=== PATIENT | female | born 1940 | race Caucasian/White ===

== ENCOUNTER 2016-08-06 18:49 | Inpatient (IN) | payer MEDICARE, BC ==
--- NOTE | ~2016-08-06 | HP ---
Unit #: [id number] #: [id number] Patient: PERRY ALLISON [id number] [facility]. [place], [place] [address] [id number] I MR#: [id number] NAME: PERRY ALLISON ROOM: Age: 75 Sex: F Admission Date: 08/06/2016 : 1940 Attending Physician: Niranjan Guerrero Jr., M.D. Primary Care Physician: No Primary Care Physician HISTORY AND PHYSICAL CHIEF COMPLAINT Lower abdominal pain. HISTORY OF PRESENT ILLNESS The patient is a 75-year-old white male who has had some intermittent abdominal pains over the last couple of weeks but developed severe periumbilical pain now that has radiated more in the right lower quadrant of her abdomen. She has had no nausea, no vomiting, no diarrhea and denies any fever or chills. She presented to the emergency room at [facility] and was worked up and a CT scan revealed evidence of probable acute early appendicitis without perforation or abscess formation. White blood cell count is 10,000. She has been in regular good health up until recently and did not have severe pain until yesterday and today. She has had no recent URI, no urinary tract symptoms. 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 Apparently she has had some hypertension previously. PAST SURGICAL HISTORY In the past she has had a hysterectomy. MEDICATIONS List of her medications is on the chart under the nursing sheet. ALLERGIES None known. TRANSFUSIONS None in the past. FAMILY HISTORY Noncontributory. SOCIAL HISTORY The patient is , lives at home with family, has a normal good appetite, no recent weight change. She is a nonsmoker, nondrinker. IMMUNIZATIONS Up to date. REVIEW OF SYSTEMS Unit #: [id number] #: [id number] Patient: PERRY ALLISON Ten-system review has been performed which is nonremarkable except as above in history of present illness. PHYSICAL EXAMINATION VITAL SIGNS: The patient is afebrile. Vital signs are normal. HEENT: Nonremarkable. NECK: Supple, without palpable mass or lymphadenopathy. There is no evidence of thyromegaly present. CHEST: There is equal bilateral expansion with bilateral equal breath sounds. The lungs are clear bilaterally. HEART: Regular rhythm, without murmurs or gallops. There is no evidence of cardiomegaly clinically. ABDOMEN: Soft, moderately tender in the right lower quadrant with some guarding without rebound and active bowel sounds present. No evidence of ascites or hernias. EXTREMITIES: Full range of motion without limitation. There is no evidence of peripheral edema. BACK EXAM: There is no CVA tenderness. NEUROLOGICAL: Grossly intact. IMPRESSION The patient on the basis of her CT scan and physical exam probably has early appendicitis but I am going to go ahead with laparoscopic appendectomy, possible open. She understands the procedure including the risks including that of bleeding, staple line leak, intraabdominal organ injury and abscess formation and consents. Dictated by Niranjan Guerrero Jr. MVicky. ESPERANZA/keshawn TD: 08/06/2016 21:19 JOB #: [id number] HISTORY AND PHYSICAL Page 1 of 1 X Niranjan Guerrero MD X HISTORY AND PHYSICAL
--- NOTE | ~2016-08-06 | OR ---
Unit #: [id number] #: [id number] Patient: PERRY ALLISON [id number] [place], [place] [address] [id number] I MR#: [id number] NAME: PERRY ALLISON ROOM: 469 Date of Procedure: 08/06/2016 Admission Date: 08/06/2016 Surgeon: Niranjan Guerrero Jr., M.D. : 1940 Attending Physician: Niranjan Guerrero Jr., M.D. Primary Care Physician: Primary Care Physician No OPERATIVE REPORT INDICATIONS FOR PROCEDURE The patient is a 75-year-old white female, who presented to the emergency room at [facility] after developing severe abdominal pain. She has apparently been having pain for the last three weeks, but it became much more severe today and she presented there and was worked up. CT scan revealed evidence of acute appendicitis without perforation. White blood cell count was 10,000, temperature normal. On examination, she was noted to have tenderness in the right lower quadrant. It was felt she had acute appendicitis. She has had a known history for heart valve replacement and has been on Plavix and risk has been discussed with her including that of bleeding, infection, intra-abdominal organ injury, and staple line leak, and the patient understands and consents. PREOPERATIVE DIAGNOSES Acute and chronic appendicitis. POSTOPERATIVE DIAGNOSES Acute and chronic appendicitis without evidence of perforation or abscess formation. ANESTHESIA General with endotracheal intubation 0.5% Marcaine with epinephrine locally. PROCEDURES PERFORMED Laparoscopic lysis of adhesions requiring 15 to 20 minutes followed by laparoscopic appendectomy. Also, FloSeal was used in the area of the bed of the appendix. DESCRIPTION OF PROCEDURE The patient was positioned in supine position and after being anesthetized and intubated, she was prepped and draped in routine fashion for laparoscopic appendectomy. A small infraumbilical incision made approximately a centimeter in length. This was carried down to the fascia. The fascia and umbilicus were lifted with a towel clip and a Veress needle introduced into the abdomen. The abdomen was then inflated with CO2 gas. A 5-mm port was introduced in the abdomen followed by the camera. There was no evidence any injury related to introduction of the port or the Veress needle. Brief intra-abdominal exploration was carried out. The omentum was stuck down in the lower part of the abdomen. A 5-mm port was placed long term between the umbilicus and suprapubic area under direct visualization and a 12-mm port just to the right of the upper Unit #: [id number] #: [id number] Patient: PERRY ALLISON midline under direct visualization. At this point, multiple adhesions were freed up with the hook cautery as well as the hook scissors using the cautery. This required approximately 15 to 20 minutes after mobilizing the omentum. The cecum was brought over and released from its lateral attachments, which were basically adhesions to the right lateral abdominal wall. This was also done with hook cautery with care not to get too close to the colon. After this was all freed up, the appendix was found and noted to be chronically and acutely inflamed and embedded in inflammatory mass. The base of the appendix was free of the inflammation and at this point, a window was created at the base and using the linear stapler using 3.5 mm ed, it was stapled and divided. The hook cautery was then used to free up the rest of the appendix and the mesoappendix was then clamped and divided and stapled with the vascular load. The appendix placed in EndoCatch bag and brought out through the upper port site. The port was replaced. The right lower quadrant checked. There was some oozing from the area. Most of this was all controlled with either hemoclips or with the Bovie cautery using a current of 30. Although, it still appeared that there might be some oozing and therefore FloSeal was injected down in the right lower quadrant area. After this was complete, the CO2 was removed from the abdomen. The fascia in the larger port site was approximated with the neoClose technique and after CO2 was expressed from the abdomen, the port sites were injected with 0.5% Marcaine with epinephrine. There was no evidence of any bleeding from the port sites. They were irrigated and the wound edges were then approximated with stainless-steel skin clips and skin stapling device. Sterile dressings were applied externally. Estimated blood loss less than 75 mL. The patient received less than 2000 mL crystalloid solution during the procedure. Sponges and instrument counts were correct x3. No drains used. No complications. The patient was taken to the recovery room with stable vital signs in satisfactory condition. Dictated by... Niranjan Guerrero Jr., M.D. JMB/miracle TD: 08/07/2016 19:24 JOB #: [id number] OPERATIVE REPORT Page 1 of 1 X Niranjan Guerrero MD X PROCEDURE OPERATIVE NOTE
[2016-08-07] MEDS ORDERED: RAMIPRIL5 MG PO (02:07)
[2016-08-07] MEDS ORDERED: LASIX20 MG PO (02:07)
[2016-08-07] MEDS ORDERED: ALPRAZOLAM1 MG PO (02:07)
[2016-08-07] MEDS ORDERED: DILT-XR240 M1 PO (02:11)
[2016-08-07] MEDS ORDERED: TOPROL XL 50 MG50 MG PO (02:11)
[2016-08-07] MEDS ORDERED: CLOPIDOGREL75 MG PO (02:12)
[2016-08-07] MEDS ORDERED: TRAMADOL HCL50 M1 PO (02:12)
[2016-08-07] MEDS ORDERED: PAROXETINE HCL10 MG PO (02:12)
[2016-08-07] MEDS ORDERED: MONTELUKAST SOD10 MG PO (02:12)
[2016-08-07] MEDS ORDERED: FERRO-TIME325 MG PO (02:13)
[2016-08-07] MEDS ORDERED: TOPIRAMATE100 MG PO (02:14)
[2016-08-07] MEDS ORDERED: CRESTOR10 MG PO (02:14)
[2016-08-07] MEDS ORDERED: BELSOMRA10 MG PO (02:14)
[2016-08-07] MEDS ORDERED: HUMALOG KW200 UNIT/1 SUBQ (02:18)
[2016-08-07 03:29] LABS: CALCIUM SERUM 8.6 mg/dL (8.4-10.2); GLOM FILT RATE Estimated 55.9 mL/min (>60); POTASSIUM 3.9 mmol/L (3.5-5.1)
[2016-08-07 06:23] LABS: BASOPHIL% 0.2 % (0-2.5); EOSINOPHIL% 0.1 % (0.0-7.0); HEMOGLOBIN 13.9 gm/dL (12.0-16.0); LYMPHOCYTE# 1.4 X10e3 (1.0-3.5); LYMPHOCYTE% 7.8 % (17.0-45.0); MEAN CELL VOLUME 92.8 FL (83-96); MEAN CORPUSCULAR HEMOGLOBIN 31.5 PG (28-34); MEAN CORPUSCULAR HGB CONC 33.9 g/dL (30-36); MEAN PLATELET VOLUME 8.1 FL (6.5-11.5); MONOCYTE# 0.5 X10e3 (0-1.0); MONOCYTE% 2.9 % (3.0-12.0); NEUTROPHIL# 15.5 X10e3 (1.5-7.1); PLATELET COUNT 269 X10e3 (140-420); RED BLOOD COUNT 4.42 X10e (3.90-5.30); RED CELL DISTRIBUTION WIDTH 13.3 % (11.0-15.5); WHITE BLOOD COUNT 17.4 X10e3 (4.0-10.5)
[2016-08-07 06:24] LABS: DIFF IND YES
[2016-08-07 09:12] LABS: PLATELET ESTIMATE NORMAL (NORMAL); RBC NORMAL YES
[2016-08-07] MEDS ORDERED: HYDROCODON-ACE1 EAC5 PO (10:59)
[2016-08-07] MEDS ORDERED: FLAGYL PO (11:00)
[2016-08-07] MEDS ORDERED: VIBRAMYCIN100 M1 PO (11:00)
== END 2016-08-07 11:44 | disposition home or self-care (01) | DRG 337 ==
LOC: CEDOF 19:27 → CPACUOF 19:27 → CEDOF 19:27 → C4C 23:15
PROVIDERS: Surgery
PROC: 0DNW4ZZ Release Peritoneum, Percutaneous Endoscopic Approach (ICD-10-PCS; 2016-08-06)
PROC: 6A550Z2 Pheresis of Platelets, Single (ICD-10-PCS; 2016-08-06)
PROC: 0DTJ4ZZ Resection of Appendix, Percutaneous Endoscopic Approach (ICD-10-PCS; principal; 2016-08-06 19:00)
DX: K35.80 Unspecified acute appendicitis (principal); I48.91 Unspecified atrial fibrillation; K36 Other appendicitis; Z88.6 Allergy status to analgesic agent; F32.9 Major depressive disorder, single episode, unspecified; I10 Essential (primary) hypertension; E78.5 Hyperlipidemia, unspecified; Z87.891 Personal history of nicotine dependence; K66.0 Peritoneal adhesions (postprocedural) (postinfection)
CPT/HCPCS: 80048; 82947; 85025; 86850; 86900; 86901; 88304; J0330; J0690; J1100; J2185; J2250; J2405; J3010; P9035